=== PATIENT | female | born 1970 | race Caucasian/White ===

== ENCOUNTER 2019-03-19 05:28 | Inpatient (IN) | payer MEDICAID ==
[~2019-03-19] VITALS: Ht 165.1 cm; Wt 104.3 kg
[~2019-03-19 05:28] MED LIST: ALBU18HF2 IH; ALPR0.5T PO; AMLO5TAB88 PO; BUPR100T13 PO; CLOM50TA18 PO; GABA-290 PO; HYDR5TAB2 PO; LISI40TA4 PO; MOME13HF IH
[2019-03-19] MEDS ORDERED: DESM0.2T2 PO (05:33)
[2019-03-19] MEDS ORDERED: LIDOCAINE HCL/EPINEPHRINE 1%-EPI 1:100,000 20 ML VIAL ONE (06:16)
[2019-03-19] MEDS ORDERED: BACITRACIN 50,000 UNITS/VIAL ONE (06:16)
[2019-03-19] MEDS ORDERED: THROMBIN (BOVINE) 5000 UNITS/VIAL TOP ONE (06:16)
[2019-03-19 06:24] LABS: EOSINOPHILS % 2.6 % (0.0-5.0); HEMATOCRIT. 35.7 % (36.0-48.0); LYMPHOCYTES % 28.6 % (20.0-50.0); MEAN CORPUSCULAR VOLUME 77.3 fL (81.0-99.0); MONOCYTES % 5.9 % (2.0-8.0); NEUTROPHILS % 61.9 % (40.0-76.0); PLATELET 434 x1000/uL (130-400); RED BLOOD CELL COUNT 4.62 mill/uL (4.2-5.4); RED CELL DISTRIBUTION WIDTH 15.3 % (11.6-14.6)
[2019-03-19 06:29] LABS: CHLORIDE 97 mEq/L (98-107)
[2019-03-19] MEDS ORDERED: NAPR220T66 PO (06:31)
[2019-03-19 06:33] LABS: PARTIAL THROMBOPLASTIN TIME 29.4 sec (23.4-31.0); PROTHROMBIN TIME 10.3 sec (9.6-11.0)
[2019-03-19] MEDS ORDERED: FENTANYL CITRATE/PF 50MCG/ML 5ML VIAL ONE (06:36)
[2019-03-19] MEDS ORDERED: ROCURONIUM BROMIDE 10MG/ML VIAL 5ML IV ONE (06:36)
[2019-03-19] MEDS ORDERED: HYDROMORPHONE HCL/PF 2MG/ML (OR) ONE (06:36)
[2019-03-19] MEDS ORDERED: PROPOFOL 200MG/20ML VIAL IV ONE (06:37)
[2019-03-19] MEDS ORDERED: MIDAZOLAM HCL 2 MG/2 ML VIAL ONE (06:37)
[2019-03-19 06:39] LABS: CLARITY URINE CLEAR (CLEAR); COLOR URINE YELLOW (YELLOW); KETONES URINE TRACE (NEGATIVE); LEUKOCYTE ESTERASE URINE NEGATIVE (NEGATIVE); NITRITE URINE NEGATIVE (NEGATIVE); OCCULT BLOOD URINE 1+ (NEGATIVE); PROTEIN URINE NEGATIVE (NEGATIVE); UROBILINOGEN URINE 0.2 E.U./dL (0.2-1.0)
[2019-03-19] MEDS ORDERED: SODIUM CHLORIDE 0.9% 10ML VIAL ONE (06:40)
[2019-03-19] MEDS ORDERED: CEFAZOLIN SODIUM 1000MG/VIAL ONE (06:40)
[2019-03-19 06:43] LABS: UCG SCREEN NEGATIVE
[2019-03-19] MEDS ORDERED: DESMOPRESSIN ACETATE 4MCG/ML AMP ONE (07:04)
[2019-03-19] MEDS ORDERED: IPRATROPIUM/ALBUTEROL 0.5-3(2.5)MG/3ML NEB INH PRN (07:15)
[2019-03-19] MEDS ORDERED: ONDANSETRON HCL 4MG/2ML INJ IV PRN ×2 (07:15→09:45)
[2019-03-19] MEDS ORDERED: GLYCOPYRROLATE 0.2 MG/ML 2ML VIAL ONE (08:53)
[2019-03-19] MEDS ORDERED: HYDROMORPHONE HCL/PF 2MG/ML CPJ IV PRN (09:45)
[2019-03-19] MEDS ORDERED: FENTANYL CITRATE/PF 50MCG/ML 2ML VIAL IV PRN (09:45)
[2019-03-19 10:00] VITALS: BP 114/52
[2019-03-19] MEDS ORDERED: MORPHINE SULFATE 4 MG/ML CPJ (NOT FOR IM USE) IV PRN (11:30)
[2019-03-19] MEDS ORDERED: HYDROCODONE/ACETAMINOPHEN 5/325MG TABLET PO PRN (11:30)
[2019-03-19 12:00] VITALS: BP 114/52
[2019-03-19] MEDS: AMLODIPINE 5MG TABLET PO SCH (12:08)
[2019-03-19] MEDS: LISINOPRIL 40MG TABLET PO SCH (12:09)
[2019-03-19] MEDS ORDERED: BUPROPION HCL 100MG TABLET PO SCH (14:00)
[2019-03-19] MEDS ORDERED: CEFAZOLIN SODIUM 1000MG/VIAL IV SCH (14:00)
[2019-03-19] MEDS: DESMOPRESSIN ACETATE 0.1MG TABLET PO SCH ×2 (14:22→21:36)
[2019-03-19] MEDS: GABAPENTIN 300MG CAPSULE PO SCH (14:22)
[2019-03-19] MEDS: CEFAZOLIN 1000MG PREMIX 50 ML IV SCH ×2 (14:23→21:59)
[2019-03-19] MEDS: BUPROPION HCL 75MG TABLET PO SCH (14:23)
[2019-03-19] MEDS: DEXT 5%/LACTATED RINGERS 1,000 ML IV SCH (14:33)
[2019-03-19 16:00] VITALS: BP 109/57
[2019-03-19] MEDS: HYDROCORTISONE 20MG TABLET PO SCH (17:51)
[2019-03-19 20:00] VITALS: BP 108/56
[2019-03-19] MEDS ORDERED: POTASSIUM CHLORIDE 20MEQ TABLET SR PO NR (21:23)
[2019-03-20] VITALS: BP 118/55
[2019-03-20] MEDS: DEXT 5%/LACTATED RINGERS 1,000 ML IV SCH ×2 (01:06→13:40)
[2019-03-20 04:00] VITALS: BP 120/62
[2019-03-20] MEDS: CEFAZOLIN 1000MG PREMIX 50 ML IV SCH ×2 (05:24→15:52)
[2019-03-20] MEDS: DESMOPRESSIN ACETATE 0.1MG TABLET PO SCH (05:25)
[2019-03-20 08:00] VITALS: BP 128/69
[2019-03-20] MEDS: DESMOPRESSIN ACETATE 0.1MG TABLET PO PRN ×2 (08:43→17:35)
[2019-03-20] MEDS: GABAPENTIN 300MG CAPSULE PO SCH (08:52)
[2019-03-20] MEDS: BUPROPION HCL 75MG TABLET PO SCH (08:52)
[2019-03-20] MEDS: AMLODIPINE 5MG TABLET PO SCH (08:53)
[2019-03-20] MEDS: LISINOPRIL 40MG TABLET PO SCH (08:53)
[2019-03-20] MEDS: HYDROCORTISONE 20MG TABLET PO SCH ×2 (08:53→17:12)
[2019-03-20 10:09] LABS: CHLORIDE 99 mEq/L (98-107)
[2019-03-20] MEDS: LORAZEPAM 2MG/ML CPJ IV PRN ×2 (11:05→17:35)
[2019-03-20 11:25] VITALS: BP 113/60
[2019-03-20] MEDS ORDERED: NON FORMULARY PATIENT HOME MED XX SCH ×3 (15:30)
[2019-03-20] MEDS ORDERED: ALBUTEROL (0.083%) 2.5MG/3ML NEB HHN PRN (15:45)
[2019-03-20 16:00] VITALS: BP 114/61
[2019-03-20] MEDS: BUPROPION HCL 150MG TABLET XL 24HR PO SCH (16:00)
[2019-03-20] MEDS ORDERED: ALBUTEROL (0.083%) 2.5MG/3ML NEB HHN SCH (18:00)
[2019-03-20] MEDS ORDERED: BUDESONIDE 0.5MG/2ML NEB HHN SCH (18:00)
[2019-03-20 20:26] VITALS: BP 133/71
[2019-03-21 00:19] VITALS: BP 129/68
[2019-03-21 04:00] VITALS: BP 108/54
[2019-03-21] MEDS ORDERED: DESMOPRESSIN ACETATE 0.1MG TABLET PO SCH (06:00)
[2019-03-21] MEDS ORDERED: DESMOPRESSIN ACETATE 0.1MG TABLET PO PRN (06:00)
[2019-03-21 06:14] LABS: BASOPHILS % 0.2 % (0.0-2.0); EOSINOPHILS % 0.1 % (0.0-5.0); HEMATOCRIT. 29.7 % (36.0-48.0); HEMOGLOBIN. 9.9 g/dL (12.0-16.0); LYMPHOCYTES % 8.4 % (20.0-50.0); MEAN CORPUSCULAR HEMOGLOBIN 25.6 pg (28.0-32.0); MEAN CORPUSCULAR VOLUME 77.1 fL (81.0-99.0); MEAN PLATELET VOLUME 6.9 fl (7.4-10.4); MONOCYTES % 7.9 % (2.0-8.0); NEUTROPHILS % 83.4 % (40.0-76.0); PLATELET 409 x1000/uL (130-400); RED BLOOD CELL COUNT 3.85 mill/uL (4.2-5.4); RED CELL DISTRIBUTION WIDTH 15.2 % (11.6-14.6)
[2019-03-21 06:48] LABS: CHLORIDE 96 mEq/L (98-107)
[2019-03-21] MEDS: HYDROCORTISONE 20MG TABLET PO SCH (07:50)
[2019-03-21 08:00] VITALS: BP 127/60
[2019-03-21 08:39] VITALS: BP 127/60
[2019-03-21] MEDS: BUPROPION HCL 150MG TABLET XL 24HR PO SCH (09:00)
[2019-03-21] MEDS: LISINOPRIL 40MG TABLET PO SCH (09:00)
[2019-03-21] MEDS: GABAPENTIN 300MG CAPSULE PO SCH (09:00)
[2019-03-21] MEDS: AMLODIPINE 5MG TABLET PO SCH (09:00)
[2019-03-21] MEDS: BUPROPION HCL 75MG TABLET PO SCH (09:00)
== END 2019-03-21 09:30 | disposition home or self-care (01) | DRG 304 ==
LOC: OR 05:28 → 6EST 05:29
PROVIDERS: ADMIT Neurological Surgery; ATTEND Neurological Surgery
PROC: 0SG0071 Fusion of Lumbar Vertebral Joint with Autologous Tissue Substitute, Posterior Approach, Posterior Column, Open Approach (ICD-10-PCS; principal; 2019-03-19)
PROC: 01NB0ZZ Release Lumbar Nerve, Open Approach (ICD-10-PCS; 2019-03-19)
DX: M43.16 Spondylolisthesis, lumbar region (principal); E87.1 Hypo-osmolality and hyponatremia; M48.061 Spinal stenosis, lumbar region without neurogenic claudication; M71.38 Other bursal cyst, other site; J45.909 Unspecified asthma, uncomplicated; F41.9 Anxiety disorder, unspecified; F32.9 Major depressive disorder, single episode, unspecified; I10 Essential (primary) hypertension; Z90.49 Acquired absence of other specified parts of digestive tract
CPT/HCPCS: 36415; 72100; 76000; 80048; 81025; 86850; 86900; 88304; 95863; 95925; 95926; 97166; C1713; J0690; J1170; J2060; J2250; J2597; J2704; J3010; J3490; J7121